=== PATIENT | female | born 1955 | race Caucasian/White ===

== ENCOUNTER 2016-07-14 07:31 | Inpatient (IN) | payer BC ==
[2016-07-11 15:22] VITALS: BMI 29.7
[2016-07-14] MEDS ORDERED: oxyCODONE HCL 10 MG SUSTAINED ACTING TABLET PO STA (08:07)
[2016-07-14] MEDS ORDERED: MIDAZOLAM HCL 2 MG/2 ML SINGLE DOSE VIAL ONE ×3 (08:11→09:02)
--- NOTE | 2016-07-14 08:11 | HP ---
History & Physical Update - History History: No Change - Physical Physical: No Change - Assessment Assessment: No Change - Plan Plan: No Change (61 yo F presents for planned TLIF L4-[address] Sierra. No changes to H&P in paper chart.)
[2016-07-14] MEDS ORDERED: BUPIVACAINE HCL/PF 0.5% (5MG/ML) 10 ML VIAL ONE (08:14)
[2016-07-14] MEDS ORDERED: THROMBIN (BOVINE) 5,000 UNIT VIAL TP ONE (08:38)
[2016-07-14] MEDS ORDERED: LIDOCAINE 1%-EPI 1:100,000 30 ML MDV IJ ONE (08:38)
[2016-07-14] MEDS ORDERED: GUM MASTIC/STORAX/MSAL/ALCOHOL 1 DRP DROPSBTL MC ONE (08:39)
[2016-07-14] MEDS ORDERED: GELATIN, ABSORBABLE 100 EACH SPONGE TP ONE (08:39)
[2016-07-14] MEDS ORDERED: PROPOFOL 20 ML ONE ×4 (09:01)
[2016-07-14] MEDS ORDERED: SUCCINYLCHOLINE CHLORIDE 200 MG/10 ML VIAL ONE (09:02)
[2016-07-14] MEDS ORDERED: BUPIVACAINE HCL/PF 2.5 MG/ML - 30 ML VIAL IJ ONE ×2 (09:22→10:14)
[2016-07-14] MEDS ORDERED: SCOPOLAMINE HYDROBROMIDE 1 PATCH PATCH.TD72 ONE (09:29)
[2016-07-14] MEDS ORDERED: ceFAZolin SODIUM 1 GM VIAL ONE (10:17)
[2016-07-14] MEDS ORDERED: DEXAMETHASONE SOD PHOSPHATE 4 MG/1 ML VIAL ONE (10:21)
[2016-07-14] MEDS ORDERED: ONDANSETRON 4 MG/2 ML VIAL ONE ×2 (10:21→11:36)
[2016-07-14] MEDS ORDERED: LIDOCAINE 1%/EPI 1:100000 (50 ML MULTI DOSE VIAL) INF ONE (10:41)
[2016-07-14] MEDS ORDERED: BUPIVACAINE HCL/PF 0.25% (2.5MG/ML) 10 ML VIAL IJ ONE (11:29)
[2016-07-14] MEDS ORDERED: ACETAMINOPHEN INJECTION 100 ML IVPB ONE (11:39)
[2016-07-14] MEDS ORDERED: diazePAM CARPU-JECT 10 MG/2 ML DISP.SYRIN ONE (11:40)
--- NOTE | 2016-07-14 11:42 | OP ---
Operative Note - Note: Operative Date: 07/14/16 Pre-Operative Diagnosis: L4-L5 Spondylolithesis w/ radiculopathy Operation: Posterior lumbar decompression/fusion/instrumentation, transforaminal lumbar interbody fusion L4-L5 with allograft and neuromonitoring Post-Operative Diagnosis: Same as Pre-op Surgeon: Darke Sierra Rn Visiting: Bharath Kilgore Anesthesiologist/COMPENSATION BUSINESS PARTNER: Qi Hernandez Anesthesia: General Estimated Blood Loss (mls): 15 Fluid Volume Replaced (mls): 1,000 Operative Report Dictated: Yes
--- NOTE | 2016-07-14 11:43 | SURG ---
Surgery [employer] Note [employer]: Bharath Kilgore PA-C Date of Service: 07/14/16 Diagnosis: L4-L5 spondylolithesis with radiculopathy Procedure: CPT CODES: 72060, 49435, 24485 Posterior lumbar decompression/fusion/instrumentation, transforaminal lumbar interbody fusion L4-L5 with allograft and neuromonitoring I was present for the entirety of the operative procedure. For further detail, please refer to operative report. Visit type - Case Type Case Type: Scheduled Admission - New patient This patient is new to me today: Yes Date on this admission: 07/14/16
[2016-07-14] MEDS ORDERED: clonazePAM 0.5 MG TABLET PO PRN (11:45)
[2016-07-14] MEDS ORDERED: PATIENT'S OWN MEDICATION (NON-FORMULARY) (Metformin Hcl [Metformin Hcl Er] 500 MG) PO PRN (11:45)
[2016-07-14] MEDS ORDERED: ZOLPIDEM TARTRATE 5 MG TABLET PO PRN (11:45)
[2016-07-14] MEDS ORDERED: ONDANSETRON 4 MG TABLET PO PRN (11:45)
[2016-07-14] MEDS ORDERED: oxyCODONE HCL 5 MG TABLET PO PRN ×2 (11:47)
[2016-07-14] MEDS: diazePAM CARPU-JECT 10 MG/2 ML DISP.SYRIN IVPUSH ONE ×2 (11:55→12:50)
[2016-07-14] MEDS ORDERED: LACTATED RINGERS SOLUTION 1,000 ML IV SCH ×2 (12:00→12:15)
[2016-07-14] MEDS ORDERED: morphine CARPU-JECT 4 MG/1 ML DISP.SYRIN IVPUSH PRN (12:02)
[2016-07-14] MEDS ORDERED: ONDANSETRON 4 MG/2 ML VIAL IVPUSH PRN (12:06)
[2016-07-14] MEDS: ACETAMINOPHEN 1000 MG/100 ML VIAL (NON FORMULARY) IVPB SCH ×2 (12:15→17:54)
[2016-07-14] MEDS ORDERED: KETOROLAC TROMETHAMINE 30 MG/1 ML VIAL ONE (12:23)
[2016-07-14] MEDS: KETOROLAC TROMETHAMINE 30 MG/1 ML VIAL IVPUSH PRN ×2 (12:30→17:54)
--- NOTE | 2016-07-14 16:59 | OP ---
DATE OF OPERATION: 07/14/2016 PREOPERATIVE DIAGNOSES: 1. L4-5 stenosis. 2. L4-5 spondylolisthesis. POSTOPERATIVE DIAGNOSES: 1. L4-5 stenosis. 2. L4-5 spondylolisthesis. PROCEDURE PERFORMED: 1. L4-5 laminectomy. 2. Transforaminal lumbar interbody fusion, L4-5. 3. Placement of instrumentation. 4. Placement of prosthetic cage. SURGEON: Darek Sierra MD ICU MANAGER: ARYAN Hess ESTIMATED BLOOD LOSS: 50 mL. INTRAVENOUS FLUIDS: Per Anesthesia. ANESTHESIA: General. COMPLICATIONS: There were none. DISPOSITION: Patient brought to the PACU in stable condition. INDICATION OF SURGERY: The patient is a 61-year-old female who has been suffering from significant pain from her back down into her legs. X-rays and an MRI were completed which noted that she had a spondylolisthesis at L4-5. She had gone through an exhaustive course of treatment for this which included medications, physical therapy as well as injections. Unfortunately, her pain continued to persist despite all this. At this point, risks, benefits, and alternatives were discussed and the patient consented to surgery. DESCRIPTION OF PROCEDURE: The patient was brought to the operating room by the anesthesia staff. After appropriate patient identification was performed, general anesthesia was administered. Appropriate anesthetic lines were placed. SCDs were placed on the patient. She was placed prone onto the OR table with all areas of bony prominences well padded. At this time, the C-arm was brought in and the L4 and L5 pedicles marked off. Lidocaine 10 mL with epinephrine was injected into her back at this time. Her back was prepped and draped in sterile manner. At this point, a timeout was completed. Incisions were made bilaterally over the L4 and L5 pedicles. Dissection was carried down to the fascia. The fascia was split open at this time. Under C-arm guidance, trocars were advanced to both the L4 and L5 pedicles. This was confirmed with multiple AP and lateral views. Through the trocars, wires were inserted and the trocars were removed. Over the wires, tap was performed and screws inserted in the left-hand side. Retractor blades were set up to expose the L4-5 facet joint. The disk space was identified with an osteotome. The facet joints were removed and the disk space was entered. Using a series of pituitaries, Kerrisons and curettes, a diskectomy was completed. The endplates were decorticated at this time. Bone graft was placed in. A size 8 cage filled with bone graft was placed in. Tulip heads were placed without screws. The reginaldo was measured and placed on. Caps were placed on. Final tightening and compression were applied on the right-hand side. A reginaldo was measured and placed in. Caps were placed on. Compression and final tightening were performed. All extra instrumentation was removed at this time. AP and lateral x-rays confirmed the instrumentation to be in good position. The fascia was closed with a No. 1 Vicryl suture. The subcutaneous tissue was closed with 2-0 Vicryl suture. The skin was closed with 3-0 Monocryl suture. Dermabond was applied. Steri-Strips were applied. A sterile dressing was applied. Patient was placed supine on the OR bed, extubated in the OR, and brought to the PACU in stable condition. It should be noted that neuromonitoring was stable throughout the operative course. Pablo [id number] MTDD
[2016-07-14] MEDS: ONDANSETRON 4 MG/2 ML VIAL IVPB PRN (20:39)
[2016-07-14] MEDS: clonazePAM 0.5 MG TABLET PO SCH (21:44)
[2016-07-14] MEDS: CYCLOBENZAPRINE HCL 10 MG TABLET (FP) PO SCH (21:44)
[2016-07-14] MEDS: PREGABALIN 50 MG CAPSULE PO SCH (21:44)
[2016-07-14] MEDS ORDERED: PATIENT'S OWN MEDICATION (NON-FORMULARY) (Pravastatin Sodium 40 MG) PO SCH (22:00)
[2016-07-14] MEDS ORDERED: ASPIRIN 81 MG CHEWABLE TABLETS PO SCH (22:00)
[2016-07-14] MEDS ORDERED: ATORVASTATIN CA 10 MG TABLET (FP) PO SCH (22:00)
[2016-07-14] MEDS ORDERED: PREGABALIN 100 MG CAPSULE PO SCH (22:00)
[2016-07-15] MEDS: ACETAMINOPHEN 1000 MG/100 ML VIAL (NON FORMULARY) IVPB SCH ×2 (05:59)
[2016-07-15] MEDS: ONDANSETRON 4 MG/2 ML VIAL IVPB PRN (06:03)
[2016-07-15 06:10] VITALS: PULSE 79
[2016-07-15] MEDS: PANTOPRAZOLE 40 MG TABLET (FP) PO SCH ×2 (06:18→09:42)
[2016-07-15 08:15] LABS: ANION GAP 10 (8-16); CALCIUM 9.8 mg/dl (8.4-10.2); CO2 26 mmol/L (22-28); CREATININE 0.8 mg/dl (0.6-1.3); GLUCOSE,RANDOM 153 mg/dl (74-106)
--- NOTE | 2016-07-15 08:22 | DS ---
Physical Exam: SUBJECTIVE: Patient seen and examined this am. She has been oob and ambulating, voiding. She has some slight nausea this am, no emesis. OBJECTIVE: Vital Signs Temperature 98.2 F 07/15/16 06:00 Pulse Rate 79 07/15/16 06:00 Respiratory Rate 19 07/15/16 06:00 Blood Pressure 110/54 07/15/16 06:00 O2 Sat by Pulse Oximetry (%) 95 07/15/16 06:00 PHYSICAL EXAM GENERAL: The patient is awake, alert, and fully oriented, in no acute distress. HEAD: Normal with no signs of trauma. ABDOMEN: Soft, nontender, nondistended, normoactive bowel sounds, no guarding, no rebound, no hepatosplenomegaly, no masses. EXTREMITIES: 2+ pulses, warm, well-perfused, no edema. NEUROLOGICAL: Normal speech. 5/5 dorsi/plantar/EHL flexion b/l. calves soft, non -tender, no swelling. Back: dressing clean,dry intact. No ecchymosis or masses seen. PSYCH: Normal mood, normal affect. LABS CBC,CMP POC Glucometer 140 UNITS (()) 07/14/16 12:08 HOSPITAL COURSE: Date of Admission:07/14/16 Date of Discharge: 07/15/16 The patient was admitted to the Med-Surg Unit after an elective repair of their spinal stenosis. Now, s/p L4-L5 lumbar fusion. The day of surgery, the patient ambulated the hallways with assistance. Narcotic and non-narcotic pain management control was achieved with an oral and IV approach. An xray was obtained and confirmed hardware placement at L4-L5, no fractures or dislocations. Emilia-operative IV ABX were administered. DVT prophylaxis was achieved with SCDs and early ambulation. The patient ambulated with Physical Therapy and no services were recommended upon discharge. Narcotic scripts and or muscle relaxants were checked with [facility] prior to escibe. The discharge instructions and an oral pain management plan were reviewed with the patient. All questions answered. Above plan discussed with Dr. Sierra and agreed. Minutes to complete discharge: 20 <Rachel Hinojosa - Last Filed: 07/15/16 09:06> Physical Exam: SUBJECTIVE: Patient seen and examined OBJECTIVE: Vital Signs Temperature 98.3 F 07/15/16 10:00 Pulse Rate 79 07/15/16 10:00 Respiratory Rate 19 07/15/16 10:00 Blood Pressure 111/58 07/15/16 10:00 O2 Sat by Pulse Oximetry (%) 95 07/15/16 06:00 PHYSICAL EXAM GENERAL: The patient is awake, alert, and fully oriented, in no acute distress. HEAD: Normal with no signs of trauma. EYES: PERRL, extraocular movements intact, sclera anicteric, conjunctiva clear. ENT: Ears normal, nares patent, oropharynx clear without exudates, moist mucous membranes. NECK: Trachea midline, full range of motion, supple. LUNGS: Breath sounds equal, clear to auscultation bilaterally, no wheezes, no crackles, no accessory muscle use. HEART: Regular rate and rhythm, S1, S2 without murmur, rub or gallop. ABDOMEN: Soft, nontender, nondistended, normoactive bowel sounds, no guarding, no rebound, no hepatosplenomegaly, no masses. EXTREMITIES: 2+ pulses, warm, well-perfused, no edema. NEUROLOGICAL: Cranial nerves II through XII grossly intact. Normal speech, gait not observed. PSYCH: Normal mood, normal affect. SKIN: Warm, dry, normal turgor, no rashes or lesions noted. LABS CBC,CMP WBC 13.5 K/mm3 (4.0-10.8) H 07/15/16 07:38 RBC 4.15 M/mm3 (3.60-5.2) 07/15/16 07:38 Hgb 12.6 GM/dl (10.7-15.3) 07/15/16 07:38 Hct 37.6 % (32.4-45.2) 07/15/16 07:38 MCV 90.7 fl (80-96) 07/15/16 07:38 MCHC 33.6 g/dl (32.0-36.0) 07/15/16 07:38 RDW 12.4 % (11.6-15.6) 07/15/16 07:38 Plt Count 314 K/MM3 (134-434) 07/15/16 07:38 MPV 9.0 fl (7.5-11.1) 07/15/16 07:38 Sodium 141 mmol/L (136-145) 07/15/16 07:38 Potassium 4.3 mmol/L (3.5-5.1) 07/15/16 07:38 Chloride 105 mmol/L (98-107) 07/15/16 07:38 Carbon Dioxide 26 mmol/L (22-28) 07/15/16 07:38 Anion Gap 10 (8-16) 07/15/16 07:38 BUN 15 mg/dl (7-18) 07/15/16 07:38 Creatinine 0.8 mg/dl (0.6-1.3) 07/15/16 07:38 POC Glucometer 140 UNITS (()) 07/14/16 12:08 Random Glucose 153 mg/dl (74-106) H 07/15/16 07:38 Calcium 9.8 mg/dl (8.4-10.2) 07/15/16 07:38 HOSPITAL COURSE: Date of Admission:07/14/16 Date of Discharge: 07/21/16 The patient was admitted to the Med-Surg Unit after an elective repair of their L4-5 Spondylolisthesis. The day of surgery, the patient ambulated the hallways with assistance. Narcotic and non-narcotic pain management control was achieved with an oral and IV approach. POD #1, the surgical drain was removed fully intact and without incident. An xray was obtained and confirmed hardware placement at L4-5, no fractures or dislocations. Emilia-operative IV ABX were administered. DVT prophylaxis was achieved with SCDs and early ambulation. The patient ambulated with Physical Therapy and no services were recommended upon discharge. Narcotic scripts and or muscle relaxants were checked with [facility] prior to escibe. The discharge instructions and an oral pain management plan were reviewed with the patient. All questions answered. Above plan discussed with Dr. Sierra and agreed. <Darek Sierra - Last Filed: 07/21/16 09:21> Visit type - Case Type Case Type: Scheduled Admission - Emergency Emergency Visit: No - New patient This patient is new to me today: Yes Date on this admission: 07/15/16 - Critical Care Critical Care patient: No <Rachel Hinojosa - Last Filed: 07/15/16 09:06>
[2016-07-15 08:53] LABS: MCH 30.4 pg (25.7-33.7); MCHC 33.6 g/dl (32.0-36.0); MEAN CELL VOLUME 90.7 fl (80-96); PLATELET COUNT 314 K/MM3 (134-434); RDW 12.4 % (11.6-15.6); WHITE BLOOD COUNT 13.5 K/mm3 (4.0-10.8)
[2016-07-15] MEDS: clonazePAM 0.5 MG TABLET PO SCH (09:39)
[2016-07-15] MEDS: CYCLOBENZAPRINE HCL 10 MG TABLET (FP) PO SCH (09:39)
[2016-07-15] MEDS: PREGABALIN 50 MG CAPSULE PO SCH (09:46)
[2016-07-15] MEDS ORDERED: PATIENT'S OWN MEDICATION (NON-FORMULARY) (Bupropion Hcl [Wellbutrin Xl] 300 MG) PO SCH (10:00)
[2016-07-15 10:36] VITALS: BP 111/58; TEMP 98.3
== END 2016-07-15 10:30 | disposition home or self-care (01) | DRG 460 ==
LOC: FM/S 07:31
PROVIDERS: ADMIT Orthopaedic Surgery Orthopaedic Surgery of the Spine; ATTEND Orthopaedic Surgery Orthopaedic Surgery of the Spine
PROC: 0SG00AJ Fusion of Lumbar Vertebral Joint with Interbody Fusion Device, Posterior Approach, Anterior Column, Open Approach (ICD-10-PCS; 2016-07-14)
PROC: 0SB20ZZ Excision of Lumbar Vertebral Disc, Open Approach (ICD-10-PCS; principal; 2016-07-14 10:22)
DX: M43.16 Spondylolisthesis, lumbar region (principal); M54.16 Radiculopathy, lumbar region; M48.06 Spinal stenosis, lumbar region; R11.0 Nausea
CPT/HCPCS: 36415; 72100-TC; 76001-TC; 80048; 85027; 94010; 94760; 97116-GP; 97162-GP